=== PATIENT | male | born 1990 | race Caucasian/White ===

== ENCOUNTER 2018-06-07 10:48 | Emergency (ER) | payer OTHER ==
[2018-06-07 11:18] VITALS: RESP 18; TEMP 98
[2018-06-07] MEDS ORDERED: ONDANSETRON 4 MG/2 ML VIAL IVP STA (11:44)
[2018-06-07] MEDS ORDERED: MORPHINE SULFATE 4 MG/ML SYRINGE IVP STA (11:44)
--- NOTE | 2018-06-07 11:48 | ED ---
Fall HPI - General Chief Complaint: Fall Stated Complaint: back and rt thumb injury Time Seen by Provider: 06/07/18 11:26 Source: patient, RN notes reviewed Mode of arrival: ambulatory Limitations: no limitations - History of Present Illness Initial Comments: This a 27-year-old male presents emergency Department chief complaint of fall. Patient states that he was on a ladder carrying a bundle of shingles of to approximately 20 feet high and states he fell a twisted to the right side falling onto his right side on grass. Patient states his happened 2 days ago. He states the pain is worsened primarily on his left low back and left side of his abdomen. Patient states there is no head injury no loss conscious. Denies any head, neck pain. Patient states that he can barely move secondary to pain. He denies any bruising or abdominal swelling. Denies any bowel bladder incontinence or retention. States some pain radiates to his left hip he has no lower extremity weakness paresthesias. Patient states that he's had no nausea vomiting diarrhea constipation. - Related Data Home Medications Medication Instructions Recorded Confirmed Multivitamins, Thera [Multivitamin 1 tab PO DAILY 06/07/18 06/07/18 (formulary)] Naproxen Sodium [Aleve] 440 mg PO DAILY 06/07/18 06/07/18 Previous Rx's Medication Instructions Recorded Hydrocodone/Acetaminophen [[place] 1 tab PO Q6HR PRN #12 tab 06/07/18 5-325] Allergies Allergy/AdvReac Type Severity Reaction Status Date / Time No Known Allergies Allergy Verified 06/07/18 11:37 Review of Systems ROS Statement: Those systems with pertinent positive or pertinent negative responses have been documented in the HPI. ROS Other: All systems not noted in ROS Statement are negative. Past Medical History Past Medical History: No Reported History History of Any Multi-Drug Resistant Organisms: None Reported Past Surgical History: No Surgical Hx Reported Past Psychological History: No Psychological Hx Reported Smoking Status: Current every day smoker Past Alcohol Use History: Occasional Past Drug Use History: Marijuana General Exam Limitations: no limitations General appearance: alert, in no apparent distress Head exam: Present: atraumatic, normocephalic, normal inspection Eye exam: Present: normal appearance, PERRL, EOMI. Absent: scleral icterus, conjunctival injection, periorbital swelling ENT exam: Present: normal exam, normal oropharynx, mucous membranes moist, TM's normal bilaterally Neck exam: Present: normal inspection, full ROM. Absent: tenderness, meningismus, lymphadenopathy Respiratory exam: Present: normal lung sounds bilaterally. Absent: respiratory distress, wheezes, rales, rhonchi, stridor Cardiovascular Exam: Present: regular rate, normal rhythm, normal heart sounds. Absent: systolic murmur, diastolic murmur, rubs, gallop, clicks GI/Abdominal exam: Present: soft, tenderness (Mild left flank and left lower side), normal bowel sounds. Absent: distended, guarding, rebound, rigid Extremities exam: Present: other (Tenderness of the right thumb, moderate swelling limited range of motion neurovascular intact there is no snuffbox tenderness there is no tenderness the wrist remaining extremity exam within normal limits) Back exam: Present: tenderness (Severe tenderness to the left lumbar region). Absent: full ROM Neurological exam: Present: alert, oriented X3, CN II-XII intact, reflexes normal. Absent: motor sensory deficit Skin exam: Present: warm, dry, intact, normal color. Absent: rash Course Vital Signs 06/07/18 11:15 Temperature 98.0 F Pulse Rate 68 Respiratory 18 Rate Blood Pressure 110/71 O2 Sat by Pulse 99 Oximetry Procedures - Orthopedic Splinting/Casting Injury #1 Side: right Upper Extremity Injury Location: short arm, hand Upper Extremity Immobilizer: thumb spica, synthetic pre-padded splint Medical Decision Making - Medical Decision Making 27-year-old male presents emergency from for fall off 20 foot ladder. Patient complained of left-sided pain after he fell onto his right side. CT of chest 7 pelvis was obtained no acute abnormality. Patient also complaint of right hand pain x-rays obtained shows a fracture at the base of the first digit. Patient was splinted in a thumb spica will follow-up with orthopedics. - Lab Data Result diagrams: 06/07/18 11:54 06/07/18 11:54 Lab Results 06/07/18 06/07/18 06/07/18 Range/Units 11:54 11:54 11:54 WBC 5.3 (3.8-10.6) k/uL RBC 4.64 (4.30-5.90) m/uL Hgb 14.5 (13.0-17.5) gm/dL Hct 44.9 (39.0-53.0) % MCV 96.9 (80.0-100.0) fL MCH 31.2 (25.0-35.0) pg MCHC 32.2 (31.0-37.0) g/dL RDW 13.0 (11.5-15.5) % Plt Count 184 (150-450) k/uL Neutrophils % 64 % Lymphocytes % 23 % Monocytes % 5 % Eosinophils % 6 % Basophils % 1 % Neutrophils # 3.4 (1.3-7.7) k/uL Lymphocytes # 1.2 (1.0-4.8) k/uL Monocytes # 0.3 (0-1.0) k/uL Eosinophils # 0.3 (0-0.7) k/uL Basophils # 0.0 (0-0.2) k/uL PT 9.8 (9.0-12.0) sec INR 1.0 (<1.2) APTT 24.6 (22.0-30.0) sec Sodium 140 (137-145) mmol/L Potassium 4.7 (3.5-5.1) mmol/L Chloride 108 H (98-107) mmol/L Carbon Dioxide 26 (22-30) mmol/L Anion Gap 6 mmol/L BUN 15 (9-20) mg/dL Creatinine 0.68 (0.66-1.25) mg/dL Est GFR (CKD-EPI)AfAm >90 (>60 ml/min/1.73 sqM) Est GFR (CKD-EPI)NonAf >90 (>60 ml/min/1.73 sqM) Glucose 98 (74-99) mg/dL Calcium 9.3 (8.4-10.2) mg/dL Total Bilirubin 0.7 (0.2-1.3) mg/dL AST 19 (17-59) U/L ALT 20 L (21-72) U/L Alkaline Phosphatase 46 (38-126) U/L Total Protein 6.4 (6.3-8.2) g/dL Albumin 3.9 (3.5-5.0) g/dL Urine Color Urine Appearance (Clear) Urine pH (5.0-8.0) Ur Specific [place] (1.001-1.035) Urine Protein (Negative) Urine Glucose (UA) (Negative) Urine Ketones (Negative) Urine Blood (Negative) Urine Nitrite (Negative) Urine Bilirubin (Negative) Urine Urobilinogen (<2.0) mg/dL Ur Leukocyte Esterase (Negative) 06/07/18 Range/Units 11:54 WBC (3.8-10.6) k/uL RBC (4.30-5.90) m/uL Hgb (13.0-17.5) gm/dL Hct (39.0-53.0) % MCV (80.0-100.0) fL MCH (25.0-35.0) pg MCHC (31.0-37.0) g/dL RDW (11.5-15.5) % Plt Count (150-450) k/uL Neutrophils % % Lymphocytes % % Monocytes % % Eosinophils % % Basophils % % Neutrophils # (1.3-7.7) k/uL Lymphocytes # (1.0-4.8) k/uL Monocytes # (0-1.0) k/uL Eosinophils # (0-0.7) k/uL Basophils # (0-0.2) k/uL PT (9.0-12.0) sec INR (<1.2) APTT (22.0-30.0) sec Sodium (137-145) mmol/L Potassium (3.5-5.1) mmol/L Chloride (98-107) mmol/L Carbon Dioxide (22-30) mmol/L Anion Gap mmol/L BUN (9-20) mg/dL Creatinine (0.66-1.25) mg/dL Est GFR (CKD-EPI)AfAm (>60 ml/min/1.73 sqM) Est GFR (CKD-EPI)NonAf (>60 ml/min/1.73 sqM) Glucose (74-99) mg/dL Calcium (8.4-10.2) mg/dL Total Bilirubin (0.2-1.3) mg/dL AST (17-59) U/L ALT (21-72) U/L Alkaline Phosphatase (38-126) U/L Total Protein (6.3-8.2) g/dL Albumin (3.5-5.0) g/dL Urine Color Yellow Urine Appearance Clear (Clear) Urine pH 6.5 (5.0-8.0) Ur Specific [place] 1.021 (1.001-1.035) Urine Protein Negative (Negative) Urine Glucose (UA) Negative (Negative) Urine Ketones Negative (Negative) Urine Blood Negative (Negative) Urine Nitrite Negative (Negative) Urine Bilirubin Negative (Negative) Urine Urobilinogen <2.0 (<2.0) mg/dL Ur Leukocyte Esterase Negative (Negative) Disposition Clinical Impression: Fall, Back pain, Fracture of thumb, right, closed Disposition: HOME SELF-CARE Condition: Stable Instructions: Hand Fracture (ED) Additional Instructions: Please return to the Emergency Department if symptoms worsen or any other concerns. Prescriptions: Hydrocodone/Acetaminophen [[place] 5-325] 1 tab PO Q6HR PRN #12 tab PRN Reason: Pain Is patient prescribed a controlled substance at d/c from ED?: Yes When asked, does pt state using other controlled substances?: No If prescribed controlled substance>3 days was MAPS reviewed?: Prescribed <3 Days If opioid is for acute pain is fill amount 7 days or less?: Yes If Rx opioid, was Start Talking consent form obtained?: Yes Referrals: None,Stated [Primary Care Provider] - 1-2 days Jose M Rosario MD [STAFF PHYSICIAN] - 1-2 days Time of Disposition: 13:50
[2018-06-07 12:20] LABS: Appearance,Urine Clear (Clear); Basophils % (A) 1 %; Bilirubin,Urine Negative (Negative); Blood,Urine Negative (Negative); Color,Urine Yellow; Eosinophils # (A) 0.3 k/uL (0-0.7); Eosinophils % (A) 6 %; Glucose,Urine (UA) Negative (Negative); HCT 44.9 % (39.0-53.0); HGB 14.5 gm/dL (13.0-17.5); Ketones,Urine Negative (Negative); Leukocyte Esterase,Urine Negative (Negative); Lymphocytes # (A) 1.2 k/uL (1.0-4.8); Lymphocytes % (A) 23 %; MCH 31.2 pg (25.0-35.0); MCHC 32.2 g/dL (31.0-37.0); MCV 96.9 fL (80.0-100.0); Mean Platelet Volume 7.9; Monocytes # (A) 0.3 k/uL (0-1.0); Monocytes % (A) 5 %; Neutrophils # (A) 3.4 k/uL (1.3-7.7); Neutrophils % (A) 64 %; Nitrite,Urine Negative (Negative); PH, Urine 6.5 (5.0-8.0); Platelet Count 184 k/uL (150-450); Protein,Urine Negative (Negative); RBC 4.64 m/uL (4.30-5.90); Specific Gravity,Urine 1.021 (1.001-1.035); Urobilinogen,Urine <2.0 mg/dL (<2.0); WBC 5.3 k/uL (3.8-10.6)
[2018-06-07 12:39] LABS: Partial Thromboplastin Time 24.6 sec (22.0-30.0); Prothrombin Time 9.8 sec (9.0-12.0)
[2018-06-07 12:41] LABS: ALT 20 U/L (21-72); AST 19 U/L (17-59); Albumin 3.9 g/dL (3.5-5.0); Alkaline Phosphatase 46 U/L (38-126); Anion Gap 6 mmol/L; Blood Urea Nitrogen 15 mg/dL (9-20); Calcium 9.3 mg/dL (8.4-10.2); Carbon Dioxide 26 mmol/L (22-30); Chloride 108 mmol/L (98-107); Glucose 98 mg/dL (74-99); Potassium 4.7 mmol/L (3.5-5.1); Sodium 140 mmol/L (137-145); Total Bilirubin 0.7 mg/dL (0.2-1.3); Total Protein 6.4 g/dL (6.3-8.2)
--- NOTE | 2018-06-07 12:57 | CT ---
EXAMINATION TYPE: CT ChestAbdPelvis w con DATE OF EXAM: 06/07/2018 COMPARISON: NONE HISTORY: Fall from approx. 18ft. on 06-05-18. Low back and leg pain CT DLP: 665.2 mGycm. Automated Exposure Control for Dose Reduction was Utilized. CONTRAST: CT scan of the thorax, abdomen and pelvis is performed with IV Contrast, patient injected with 100 mL of Isovue 300. FINDINGS: LUNGS: The lungs are grossly clear, there is no concerning parenchymal mass or nodule identified. T here is no pleural effusion or pneumothorax seen. The tracheobronchial tree is patent. MEDIASTINUM: Probable residual thymic tissue seen within the anterior superior mediastinum. Retroster nal hematoma is considered unlikely given no sternal fracture. There are no greater than 1 cm hilar o r mediastinal lymph nodes. No pericardial effusion is seen. OTHER: No additional significant abnormality is seen. LIVER/GB: No significant abnormality is appreciated. No subcapsular hematoma or laceration appreciat ed. Cholelithiasis. PANCREAS: No significant abnormality is seen. No ductal dilatation. SPLEEN: No significant abnormality is seen. No subcapsular hematoma or laceration appreciated. ADRENALS: No significant abnormality is seen. KIDNEYS: No significant abnormality is seen. No subcapsular hematoma or laceration appreciated. BOWEL: No dilated large or small bowel. Tubular air on axial image 109 appears to be within bowel lacy men on coronal and sagittal imaging. LYMPH NODES: No greater than 1cm abdominal or pelvic lymph nodes are appreciated. OSSEOUS STRUCTURES: There are bilateral pars and articularis defects at L5. This vertebra is also see n at L5. Multilevel Schmorl's nodes are seen of inferior and superior endplates within the thoracic a nd lumbar spine. No vertebral body height loss. No malalignment. Sacroiliac joints appear symmetric. No acute displaced fracture is seen. OTHER: No free fluid within the pelvis or pneumoperitoneum. IMPRESSION: No acute osseous fracture, abnormal fluid collection, or evidence of solid organ injury i n the thorax, abdomen, or pelvis. Mild multilevel degenerative changes of the thoracic and lumbar spi ne with no compression deformity.
--- NOTE | 2018-06-07 13:48 | XR ---
EXAMINATION TYPE: XR hand complete RT DATE OF EXAM: 06/07/2018 COMPARISON: NONE HISTORY: Pain TECHNIQUE: Three views are submitted. FINDINGS: There is a comminuted intra-articular fracture displacement of the first metacarpal. Radiopaque soft tissue density overlying the soft tissues distal fourth digit correlate may be superficial to the pat ient or beneath the fingernail. Correlate clinically. There is to be sclerosis involving the lunate with abnormal appearance of the lunotriquetral joint. IMPRESSION: 1. Comminuted displaced intra-articular fracture base first metacarpal 2. Sclerosis of the lunate can be seen with osteonecrosis correlate with MRI.
[2018-06-07] MEDS ORDERED: HYDROmorphone 1 MG/ML 1 ML SYRINGE IVP STA (13:51)
[2018-06-07 14:08] VITALS: BP 120/63; PULSE 53
== END 2018-06-07 14:12 | disposition home or self-care (01) ==
LOC: EC 10:48
DX: S62.231A Other displaced fracture of base of first metacarpal bone, right hand, initial encounter for closed fracture (principal); M54.9 Dorsalgia, unspecified; F17.200 Nicotine dependence, unspecified, uncomplicated; Z79.1 Long term (current) use of non-steroidal anti-inflammatories (NSAID); W11.XXXA Fall on and from ladder, initial encounter; Y92.89 Other specified places as the place of occurrence of the external cause; Y93.89 Activity, other specified
CPT/HCPCS: 29125; 36415; 71260; 74177; 80053; 81003; 85025; 85610; 85730; 96374; 96375; 99284

== ENCOUNTER → 2018-12-05 | Outpatient (CLI) | payer OTHER ==
[2018-12-05 14:25] LABS: Basophils % (A) 1 %; Eosinophils # (A) 0.2 k/uL (0-0.7); Eosinophils % (A) 5 %; HCT 45.3 % (39.0-53.0); HGB 14.7 gm/dL (13.0-17.5); Lymphocytes # (A) 1.4 k/uL (1.0-4.8); Lymphocytes % (A) 27 %; MCHC 32.4 g/dL (31.0-37.0); MCV 95.7 fL (80.0-100.0); Mean Platelet Volume 7.9; Monocytes # (A) 0.3 k/uL (0-1.0); Monocytes % (A) 6 %; Neutrophils % (A) 59 %; Platelet Count 203 k/uL (150-450); RBC 4.73 m/uL (4.30-5.90); RDW 13.3 % (11.5-15.5); WBC 5.1 k/uL (3.8-10.6)
[2018-12-05 20:02] LABS: Erythrocyte Sedimentation Rate 2 mm/hr (0-15)
[2018-12-05 20:19] LABS: Vitamin D 25 Hydroxy 21.2 ng/mL (30.0-100.0)
[2018-12-05 20:49] LABS: Hepatitis C IgG Antibody Non-Reactive (Non-Reactive)
[2018-12-05 21:09] LABS: ALT 14 U/L (10-49); AST 19 U/L (14-35); Albumin/Globulin Ratio 2.81 (1.60-3.17); Alkaline Phosphatase 67 U/L (41-126); C Reactive Protein <0.4 mg/dL (0.0-0.8); Calcium 9.7 mg/dL (8.7-10.3); Carbon Dioxide 30.5 mmol/L (21.6-31.8); Chloride 106 mmol/L (96-109); Creatine Kinase 98 U/L (35-257); Globulin 1.6 g/dL (1.6-3.3); Glucose 77 mg/dL (70-110); Potassium 4.6 mmol/L (3.5-5.5); Sodium 142 mmol/L (135-145); Total Bilirubin 0.4 mg/dL (0.3-1.2); Total Protein 6.1 g/dL (6.2-8.2)
== END ==
LOC: LABWHC1 13:09
PROVIDERS: ATTEND Internal Medicine
DX: J44.9 Chronic obstructive pulmonary disease, unspecified (principal); E78.5 Hyperlipidemia, unspecified; E03.9 Hypothyroidism, unspecified; E55.9 Vitamin D deficiency, unspecified; R00.0 Tachycardia, unspecified
CPT/HCPCS: 36415; 80053; 82306; 82550; 84439; 84443; 85025; 85652; 86140; 86803

== ENCOUNTER 2019-02-16 22:38 | Observation (INO) | payer OTHER ==
[2019-02-16] MEDS ORDERED: MORPHINE SULFATE 4 MG/ML SYRINGE IVP STA (23:05)
[2019-02-16] MEDS ORDERED: ONDANSETRON 4 MG/2 ML VIAL IVP STA (23:39)
--- NOTE | 2019-02-16 23:50 | XR ---
ADDENDUM - Added by Robin Mondragon MD on 02/16/2019 11:51 PM (-07:00) Right hip and pelvis: No acute fracture or dislocation EXAM: XR Pelvis Complete, 3 or More Views CLINICAL HISTORY: ITS.REASON XR Reason: Pain TECHNIQUE: Frontal and lateral or oblique views of the pelvis. COMPARISON: No relevant prior studies available. FINDINGS: Bones/joints: Large knee joint effusion with lipohemarthrosis. Nondisplaced tibial plateau fracture is present. No dislocation. Soft tissues: Unremarkable. IMPRESSION: 1. Large knee joint effusion with lipohemarthrosis. 2. Nondisplaced tibial plateau fracture is present. Correlate with CT.
--- NOTE | 2019-02-16 23:51 | XR ---
EXAM: XR Right Knee, 3 views CLINICAL HISTORY: ITS.REASON XR Reason: Pain TECHNIQUE: Three views of the right knee. COMPARISON: No relevant prior studies available. FINDINGS: Bones/joints: Nondisplaced tibial plateau fracture. Large lipohemarthrosis in the knee joint. No dislocation. Soft tissues: Unremarkable. IMPRESSION: 1. Nondisplaced tibial plateau fracture. 2. Large lipohemarthrosis in the knee joint.
[2019-02-17] MEDS ORDERED: HYDROmorphone 0.5 MG/0.5 ML SYRINGE IVP STA ×2 (00:26→03:57)
--- NOTE | 2019-02-17 00:34 | CT ---
EXAM: CT Right Lower Extremity Without Intravenous Contrast, Knee CLINICAL HISTORY: ITS.REASON CT Reason: Pain TECHNIQUE: Axial computed tomography images of the right knee without intravenous contrast. This CT exam was performed using one or more of the following dose reduction techniques: automated exposure control, adjustment of the mA and/or kV according to patient size, and/or use of iterative reconstruction technique. COMPARISON: No relevant prior studies available. FINDINGS: Bones/joints: Comminuted fracture at the proximal tibia involving the medial plateau and intercondylar eminence. There is displacement of the intercondylar eminence into the joint space. Moderate hemarthrosis. No depressed fracture fragment. No dislocation. Soft tissues: Unremarkable. IMPRESSION: Comminuted fracture at the proximal tibia involving the medial plateau and intercondylar eminence. There is displacement of the intercondylar eminence into the joint space.
[2019-02-17] MEDS ORDERED: SODIUM CHLORIDE 0.9% 1,000 ML IV SCH ×2 (01:00→02:00)
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
[2019-02-17 02:02] VITALS: RESP 18
[2019-02-17] MEDS: HYDROmorphone 0.5 MG/0.5 ML SYRINGE IVP PRN ×2 (02:05→07:24)
[2019-02-17 06:18] VITALS: BP 103/70; PULSE 56; TEMP 97.3
[2019-02-17] MEDS ORDERED: IBUPROFEN 200 MG TAB PO PRN (06:41)
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
[2019-02-17] MEDS ORDERED: HEPARIN SODIUM,PORCINE 5,000 UNIT/ML 1 ML VIAL SQ SCH (08:00)
[2019-02-17 08:40] LABS: Basophils % (A) 0 %; Eosinophils # (A) 0.2 k/uL (0-0.7); Eosinophils % (A) 3 %; HCT 39.1 % (39.0-53.0); HGB 11.8 gm/dL (13.0-17.5); Lymphocytes # (A) 1.6 k/uL (1.0-4.8); Lymphocytes % (A) 21 %; MCH 29.2 pg (25.0-35.0); MCHC 30.2 g/dL (31.0-37.0); MCV 96.4 fL (80.0-100.0); Mean Platelet Volume 8.3; Monocytes # (A) 0.4 k/uL (0-1.0); Monocytes % (A) 6 %; Neutrophils # (A) 4.9 k/uL (1.3-7.7); Neutrophils % (A) 67 %; Platelet Count 166 k/uL (150-450); RBC 4.06 m/uL (4.30-5.90); RDW 14.2 % (11.5-15.5); WBC 7.3 k/uL (3.8-10.6)
[2019-02-17 08:49] LABS: African American GFR (CKD) >90 (>60 ml/min/1.73 sqM); Anion Gap 4 mmol/L; Blood Urea Nitrogen 10 mg/dL (9-20); Calcium 8.7 mg/dL (8.4-10.2); Carbon Dioxide 28 mmol/L (22-30); Chloride 106 mmol/L (98-107); Glucose 97 mg/dL (74-99); Potassium 4.2 mmol/L (3.5-5.1); Sodium 138 mmol/L (137-145)
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
[2019-02-17] MEDS ORDERED: HYDROmorphone 1 MG/ML 1 ML SYRINGE IVP STA (09:47)
[2019-02-17] MEDS ORDERED: HYDROmorphone 1 MG/ML 1 ML SYRINGE IVP PRN (09:47)
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
== END 2019-02-17 12:55 | disposition short-term general hospital (02) ==
LOC: EC 22:38 → 4SSUR 02-17 02:01
PROVIDERS: ADMIT Internal Medicine; ATTEND Internal Medicine
DX: S82.141A Displaced bicondylar fracture of right tibia, initial encounter for closed fracture (principal); V86.56XA Driver of dirt bike or motor/cross bike injured in nontraffic accident, initial encounter; F17.200 Nicotine dependence, unspecified, uncomplicated; Y93.55 Activity, bike riding
CPT/HCPCS: 96376 ×2; 96374; 96375 ×2; 99285; 80048; 85025; 73502; 73562; 73700; G0378; J2270; J2405; J1170 ×2